=== PATIENT | female | born 1945 | race African-American/Black ===

== ENCOUNTER 2019-01-02 05:41 | Day surgery (SDC) | payer MEDICARE, BC ==
--- NOTE | 2018-12-30 19:30 | Pre-op HX & Phy Repo 2 SIG ---
DATE OF ADMISSION: 01/02/2019 PREOPERATIVE DIAGNOSIS: Inferior retinal detachment, left eye. 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 PAST OCULAR HISTORY: Remarkable for severe diabetic disease and macular degeneration and she has undergone injections both by another physician and myself starting 2 years ago. MEDICAL HISTORY: Remarkable for diabetes since 1984. She has also had hypertension and elevated cholesterol for about the same amount of time. Diabetic retinopathy was noticed in 2013. She is a nonsmoker. She had cataract surgery in the left eye in 2014 and the right eye in 2013. She is currently maintained on Simbrinza twice daily in the left eye. OPHTHALMIC EXAMINATION: Best vision at the time of admission was 20/80 in the right eye and 20/200- in the left with pressures of 14 and 8. The anterior segments showed posterior chamber lenses in reasonable position bilaterally. Fundus examination of the right eye showed angioid streaks. There was central wet macular degeneration as well as widespread pre-proliferative diabetic retinopathy. The left fundus showed semi-angioid streaks and a large disciform lesion in the right eye. In addition, there was mild preretinal fibrosis along the inferotemporal arcade and a fairly bullous inferior retinal detachment leading up to the arcades, but not through the retinal center. The retina was very here and there appeared to be a small retinal break at the 7 o'clock position anterior to the equator. General physical examination will be performed by Dr. Whitfield. ASSESSMENT: Inferior retinal detachment, left eye. PLAN: The plan is to perform a pars plana vitrectomy with scleral buckling, endo-drainage, endolaser, and possible silicone oil injection on the left. The risks and benefits of surgery were gone over with the patient with potential for infection, hemorrhage, and the possibility of loss of the eye. The risk of anesthesia was discussed. The patient understands and consents to surgery, which will be performed on Wednesday. Dmitriy Emanuel M.D. DR: Benjie JOB#: [id number] CC:
[~2019-01-02] VITALS: Ht 162.6 cm; Wt 86.2 kg
[2019-01-02] VITALS (10 sets, daily range): BP systolic 135–197; BP diastolic 64–100
[2019-01-02] MEDS: Flurbiprofen 0.03% Opth Sol 2.5ml LEFT EYE SCH ×3 (06:51→07:29)
[2019-01-02] MEDS: Phenylephrine 2.5% Op 2ml Soln LEFT EYE SCH ×3 (06:51→07:29)
[2019-01-02] MEDS: Cyclopentolate 1% Opth Sol 2ml LEFT EYE SCH ×3 (06:51→07:29)
[2019-01-02] MEDS: Vigamox Opth Soln 3ml LEFT EYE SCH ×3 (06:51→07:29)
[2019-01-02 06:56] LABS: BASOPHILS % (AUTO) 1.3 % (0.0-2.0); EOSINOPHILS % (AUTO) 1.6 % (0.0-3.0); HEMATOCRIT 36.8 % (37.0-47.0); LYMPHOCYTES % (AUTO) 38.6 % (20.0-45.0); MEAN CORPUSCULAR VOLUME 83 FL (80-99); MONOCYTES % (AUTO) 8.8 % (1.0-10.0); NEUTROPHILS % (AUTO) 49.7 % (45.0-75.0); PLATELET COUNT 196 K/UL (150-450); RED BLOOD COUNT 4.41 M/UL (4.20-5.40); RED CELL DISTRIBUTION WIDTH 12.9 % (11.6-14.8); WHITE BLOOD COUNT 4.2 K/UL (4.8-10.8)
[2019-01-02 07:06] LABS: ANION GAP 11 mmol/L (5-15); BLOOD UREA NITROGEN 15 mg/dL (7-18); CALCIUM 8.9 MG/DL (8.5-10.1); CARBON DIOXIDE 27 MMOL/L (21-32); CHLORIDE 105 MMOL/L (98-107); POTASSIUM 3.5 MMOL/L (3.5-5.1); SODIUM 143 MMOL/L (136-145)
[2019-01-02] MEDS ORDERED: Lidocaine 2% MPF 5ml Vial INJ ONE (07:07)
[2019-01-02] MEDS ORDERED: Maxitrol Opth Oint 3.5gm ONE (07:07)
[2019-01-02] MEDS ORDERED: EPINEPHrine 1mg/1ml Amp ONE (07:07)
[2019-01-02] MEDS ORDERED: Sodium Hyaluronate 10 mg/ml 0.85ml ONE (07:08)
[2019-01-02] MEDS ORDERED: Povidone-Iodine 5% opth solution ONE (07:08)
[2019-01-02] MEDS ORDERED: Tetracaine 0.5% Opth 4ml Soln ONE (07:08)
[2019-01-02] MEDS ORDERED: BSS 15ml BTL ONE (07:08)
[2019-01-02] MEDS ORDERED: Bupivacaine 0.75% 30ml vial INJ ONE (07:08)
[2019-01-02] MEDS ORDERED: Dexamethasone 4mg/ml vial ONE (07:08)
[2019-01-02] MEDS ORDERED: BSS 500ml btl ONE (07:08)
[2019-01-02] MEDS ORDERED: MELOXICAM15 MG PO (07:20)
[2019-01-02] MEDS ORDERED: CLONIDINE1 EAC1 TD (07:20)
[2019-01-02] MEDS ORDERED: FUROSEMIDE40 MG ORAL (07:20)
[2019-01-02] MEDS ORDERED: BYSTOLIC2.5 MG ORAL (07:20)
[2019-01-02] MEDS ORDERED: GLUCOPHAGE500 MG ORAL (07:20)
[2019-01-02] MEDS ORDERED: COZAAR50 MG ORAL (07:20)
[2019-01-02] MEDS ORDERED: SYMLIN600 MCG/1 SUBQ (07:20)
[2019-01-02] MEDS ORDERED: POTASSIUM PO (07:20)
[2019-01-02] MEDS ORDERED: HUMULIN N100 UNIT/1 SUBQ (07:20)
[2019-01-02] MEDS ORDERED: POTASSIUM CHLO10 ME3 ORAL (07:22)
[2019-01-02] MEDS ORDERED: Propofol 200mg/20ml IV ONE (08:40)
[2019-01-02] MEDS ORDERED: Lidocaine 1% MPF 10mg/ml 5ml ONE (08:40)
[2019-01-02] MEDS ORDERED: fentaNYL 100 mcg/2 mL IV ONE ×2 (08:40→10:16)
[2019-01-02] MEDS ORDERED: Midazolam 2mg/2ml Inj ONE (08:40)
[2019-01-02] MEDS ORDERED: Tobradex Opth Oint 3.5gm ONE (08:51)
--- NOTE | 2019-01-02 08:52 | Pre-Procedure Note/Attestation ---
Pre-Procedure Note/Attestation Complete Prior to Procedure Planned Procedure: left Procedure Narrative: Scleral buckle, PPV, endolaser, cryopexy, gas-fluid exchange,membrane peel Left eye Indications for Procedure Pre-Operative Diagnosis: Retinal detachment left eye Attestation I attest that I discussed the nature of the procedure; its benefits; risks and complications; and alternatives (and the risks and benefits of such alternatives ), prior to the procedure, with the patient (or the patient's legal customer counter representative). I attest that, if there was a reasonable possibility of needing a blood transfusion, the patient (or the patient's legal customer counter representative) was given the [place] [employer] standardized written summary, pursuant to the Sami Danica Blood Safety Act ([place] Health and Safety Code # 1645, as amended). I attest that I re-evaluated the patient just prior to the surgery and that there has been no change in the patient's H&P, except as documented below: Dmitriy Emanuel MD Jan 02, 2019 08:52
[2019-01-02] MEDS ORDERED: Sterile Water Irrig 1000ml IRRIG ONE (09:00)
[2019-01-02] MEDS ORDERED: ePHEDrine 50mg/ml Inj ONE (09:00)
[2019-01-02] MEDS ORDERED: Glycopyrrolate 0.2mg/ml 1ml Vial ONE (09:00)
[2019-01-02] MEDS ORDERED: LR 1000ml ONE (09:00)
[2019-01-02] MEDS ORDERED: NS Irrig 1000ml ONE (09:00)
--- NOTE | 2019-01-02 10:12 | Anethesia Preoperative Eval ---
Anesthesia Pre-op PMH/ROS General Date of Evaluation: Jan 02, 2019 Time of Evaluation: 09:00 Anesthesiologist: fabian ASA Score: ASA 1 Mallampati Score Class I : Soft palate, uvula, fauces, pillars visible Class II: Soft palate, uvula, fauces visible Class III: Soft palate, base of uvula visible Class IV: Only hard plate visible Mallampati Classification: Class III Surgeon: lyssa Diagnosis: retinal detachment Surgical Procedure: endolaser silicon oil injection left eye Anesthesia History: none Family History: no anesthesia problems Allergies: Coded Allergies: PENICILLINS (Verified Allergy, Unknown, 12/30/18) SULFA (SULFONAMIDE ANTIBIOTICS) (Verified Allergy, Unknown, 12/30/18) Medications: see eMAR Patient NPO?: Yes NPO Date: Jan 02, 2019 NPO Time: 00:01 Past Medical History Cardiovascular: Reports: HTN; Denies: CAD, [place], valve dz, arrhythmia, other Pulmonary: Denies: asthma, COPD, MICHELLE, other Gastrointestinal/Genitourinary: Reports: GERD; Denies: CRI, ESRD, other Neurologic/Psychiatric: Denies: dementia, CVA, depression/anxiety, TIA, other Endocrine: Reports: DM HEENT: Reports: cataract (L) Other: obesity PSxH Narrative: hysterectomy Anesthesia Pre-op Phys. Exam Physician Exam Last Vital Signs Date Time Temp Pulse Resp B/P (MAP) Pulse Ox O2 Delivery O2 Flow Rate FiO2 01/02/19 07:23 Room Air 01/02/19 07:04 98.5 85 18 173/79 85 Constitutional: NAD Neurologic: CN 2-12 intact Cardiovascular: RRR Respiratory: CTA Airway Exam Mallampati Classification 3 Mallampati Score: Class III MO: full ROM: full Dentures: no upper, no lower Anesthesia Pre-op A/P Labs Hematology Test 01/02/19 06:25 White Blood Count 4.2 K/UL (4.8-10.8) L Red Blood Count 4.41 M/UL (4.20-5.40) Hemoglobin 12.0 G/DL (12.0-16.0) Hematocrit 36.8 % (37.0-47.0) L Mean Corpuscular Volume 83 FL (80-99) Mean Corpuscular Hemoglobin 27.3 PG (27.0-31.0) Mean Corpuscular Hemoglobin Concent 32.7 G/DL (32.0-36.0) Red Cell Distribution Width 12.9 % (11.6-14.8) Platelet Count 196 K/UL (150-450) Mean Platelet Volume 9.9 FL (6.5-10.1) Neutrophils (%) (Auto) 49.7 % (45.0-75.0) Lymphocytes (%) (Auto) 38.6 % (20.0-45.0) Monocytes (%) (Auto) 8.8 % (1.0-10.0) Eosinophils (%) (Auto) 1.6 % (0.0-3.0) Basophils (%) (Auto) 1.3 % (0.0-2.0) Chemistry Test 01/02/19 06:25 Sodium Level 143 MMOL/L (136-145) Potassium Level 3.5 MMOL/L (3.5-5.1) Chloride Level 105 MMOL/L (98-107) Carbon Dioxide Level 27 MMOL/L (21-32) Anion Gap 11 mmol/L (5-15) Blood Urea Nitrogen 15 mg/dL (7-18) Creatinine 1.0 MG/DL (0.55-1.30) Estimat Glomerular Filtration Rate mL/min (>60) Glucose Level 189 MG/DL (74-106) H Calcium Level 8.9 MG/DL (8.5-10.1) Studies Pre-op Studies: EKG - SR Risk Assessment & Plan Assessment: denies CP ; SOB Plan: general Status Change Before Surgery: No Pre-Antibiotics Drug: declined Shanel Green CRNA Jan 02, 2019 10:12
[2019-01-02] MEDS ORDERED: fentaNYL 100 mcg/2 mL IV PRN (10:15)
[2019-01-02] MEDS ORDERED: Metoclopramide 10mg/2ml Inj IVP PRN (10:15)
--- NOTE | 2019-01-02 11:40 | Immediate Post-Op Evaluation ---
Immediate Post-Op Evalulation Immediate Post-Op Evalulation Procedure: endolaser, vitrectomy Date of Evaluation: Jan 02, 2019 Time of Evaluation: 11:39 IV Fluids: 500 Blood Pressure Systolic: 135 Blood Pressure Diastolic: 68 Pulse Rate: 87 Respiratory Rate: 14 O2 Sat by Pulse Oximetry: 100 Temperature (Fahrenheit): 95 Pain Score (1-10): 0 Nausea: No Vomiting: No Complications none Patient Status: awake, reacts, patent Hydration Status: adequate Drug: none Shanel Green CRNA Jan 02, 2019 11:40
--- NOTE | 2019-01-02 11:40 | Brief Operative Note ---
Immediate Post Operative Note Operative Note Chief Complaint: Loss of visual field Left eye Pre-op Diagnosis: Retinal detachment left eye Procedure: PPV, scleral buckle (240, 287, 70), membrane peel, Kenalog, endodrainage, endolaser (1071 spots). silicone oil (5000 [place]) Left eye. Post-op Diagnosis: Same, with subretinal fibrosis Post-op Diagnosis: same as pre-op Surgeon: Jenae Anesthesiologist: Shanel Cao Anesthesia: MAC Specimen: none Complications: none Condition: stable Fluids: Per anesthesia Estimated Blood Loss: none Drains: none Implant(s) used?: Yes - 240. 287. 70 Dmitriy Emanuel MD Jan 02, 2019 11:40
[2019-01-02] MEDS ORDERED: HYDROcodone/Acetamin 5/325 tab ORAL PRN (11:45)
[2019-01-02] MEDS ORDERED: Kenalog-10 5ml Inj ONE (11:53)
--- NOTE | 2019-01-02 12:29 | 48 Hour Post Anesthesia Eval ---
Post Anesthesia Evaluation Procedure: endolaser, vitrectomy Date of Evaluation: Jan 02, 2019 Time of Evaluation: 12:29 Blood Pressure Systolic: 150 0: 70 Pulse Rate: 70 Respiratory Rate: 14 O2 Sat by Pulse Oximetry: 98 Airway: patent Nausea: No Vomiting: No Hydration Status: adequate Cardiopulmonary Status: stable Mental Status/LOC: patient returned to baseline Follow-up care needed: N/A Shanel Green CRNA Jan 02, 2019 12:29
--- NOTE | 2019-01-02 18:30 | Operative Note - Dictated ---
DATE OF OPERATION: 01/02/2019 PREOPERATIVE DIAGNOSIS: Inferior retinal detachment with traction, left eye. POSTOPERATIVE DIAGNOSIS: Inferior retinal detachment with traction, left eye PROCEDURES PERFORMED: 1. Pars plana vitrectomy. 2. Scleral buckle. 3. Membrane peel. 4. Kenalog injection and removal. 5. Endolaser. 6. Endo drainage. 7. Silicone oil injection, left eye. SURGEON: Dmitriy Emanuel M.D. APPLIED RESEARCH DIRECTOR: None. ANESTHESIA: LMA general. ANESTHESIOLOGIST: Shanel Green CRNA. JUSTIFICATION FOR SURGERY: This 73-year-old lady with a long history of diabetes, diabetic retinopathy, and age-related macular degeneration, noted superior field loss and was found to have an inferior traction retinal detachment. BRIEF NOTE: The patient was brought to the operating room and placed on OR table in supine position. After a time-out was performed and agreed upon by the staff, general LMA anesthesia was induced by nurse cement block maker. Prior to prepping and draping, the eye was examined with the indirect ophthalmoscope. No specific tears were seen, but there appeared to be an area of subretinal fibrosis and mild preretinal traction elevating the retina from the 3 o'clock position around to the 10 o'clock position. The macula was fibrosed and not detached. At this juncture, the patient was then prepped and draped in the normal manner. Preparation was made for placement of a scleral buckle. A 360-degree peritomy was made with relaxation incisions at the 3 and 9 o'clock positions. The muscles were then isolated on white and black ties. The quadrants were explored and found to be without scleral thinning. The most suitable placement of the buckle was just the 15 mm posterior to the limbus based on prior observation with the ophthalmoscope. Bridle sutures of 5-0 nylon were placed in each quadrant centered 15 mm from the limbus with the inferior sutures being placed 5 mm apart and the superior ones 2 mm. A 240 band was then chosen and placed around the muscles around the eye beneath the muscles and the mattress sutures and secured with a 70 sleeve superonasally. A segment of 287 tire was chosen to support the inferior retina. This was cut and placed beneath the inferior rectus muscle and the two inferior mattress sutures. All sutures were tied and into position and rotated posteriorly. The 240 band was secured to form a mild to moderate buckling affect. The ends were left long, was slightly trimmed in case additional manipulation was needed. Preparation was then made for scleral buckle. Using a 23-gauge trocar system, cannulas were placed in all except infranasal quadrant. Infusion secured inferotemporally. Vitrectomy was begun posterior to the lens taking care to avoid manipulation, which might dislodged. A central core vitrectomy was done followed by peripheral vitrectomy leaving a small vitreous skirt. Kenalog was used to aid in visualization of the vitreous. Scleral depression showed no definite breaks, but there were areas of subretinal fibrosis and mild preretinal fibrosis inferior to the arcade. An old demarcation line was seen at about the 10 o'clock position at the extent of the detachment. Corneal epithelium was removed because of cloudiness at this point and a posterior viewing lens inserted. Very faint membranes were noted with most retraction coming from subretinal strands and fibrosis. It was felt that the buckle would support this with silicone oil was likely needed. A site was chosen, nasal to the optic nerve to form a posterior sclerotomy. Cautery was introduced and an opening was made. An air-fluid exchange was used to flatten the retina. The subretinal fluid was noted to be thick and proteinaceous. The retina was flattened nicely through the posterior sclerotomy. With the retina flattened, Endolaser was brought to the eye and a power of 0.3 barrera, duration 0.2 seconds, a total of 1071 lesions were applied surrounding the posterior retinotomy and treating the crest of the buckle, the inferior 180 degrees. No problems were encountered. At this juncture, silicone oil, 5000 centistokes was placed using the infusion line as a chimney. Pressure was maintained and roughly a 95% fill was achieved with the anterior chamber being unaffected and the eye left normotensive. At the conclusion of this maneuver, all sclerotomies were closed with 8-0 Vicryl suture. The ends of the buckle were trimmed without further tightening. Conjunctiva and Tenon capsule were pulled up and secured with 6-0 plain catgut, knots buried. Subconjunctival Decadron and gentamicin were then injected inferiorly and topical TobraDex, Vigamox, atropine drops, and prednisolone drops were instilled. The eye was patched and shielded, and the patient was taken to recovery in excellent condition to be placed in a face-down position. There were no complications. It should be noted that because of the extensive subretinal fibrosis, it was chosen to place a scleral buckle and do endo drainage to flat the retina as well as used silicone oil. Dmitriy Emanuel M.D. DR: [place] JOB#: [id number] CC:
== END 2019-01-02 13:20 | disposition home or self-care (01) ==
LOC: SUR 05:41
DX: H33.42 Traction detachment of retina, left eye (principal); E11.319 Type 2 diabetes mellitus with unspecified diabetic retinopathy without macular edema; I10 Essential (primary) hypertension; E78.00 Pure hypercholesterolemia, unspecified; Z88.2 Allergy status to sulfonamides; Z88.0 Allergy status to penicillin; K21.9 Gastro-esophageal reflux disease without esophagitis
CPT/HCPCS: 36415; 67108; 80048; 82962; 85025; 93005; J0171; J0360; J1100; J2250; J2704; J3010; J3301; J3470; J3490; 94003; 94150